=== PATIENT | male | born 1945 | race African-American/Black ===

== ENCOUNTER 2018-02-16 23:26 | Emergency (ER) | payer OTHER ==
[~2018-02-16] VITALS: Ht 182.9 cm; Wt 95.3 kg
[2018-02-17] MEDS ORDERED: IOHEXOL-350 100 ML BOTTLE ONE (00:22)
[2018-02-17] MEDS ORDERED: NALOXONE HCL 0.4 MG/ML 1ML VIAL IV STA (00:26)
[2018-02-17] MEDS ORDERED: NALOXONE HCL 1 MG/ML 2ML VIAL ONE (00:35)
[2018-02-17 00:36] LABS: BASOPHILS % 0.5 % (0.0-2.0); HEMATOCRIT. 40.9 % (42.0-52.0); HEMOGLOBIN. 13.7 g/dL (14.0-18.0); LYMPHOCYTES % 16.3 % (20.0-50.0); MEAN CORPUSCULAR HEMOGLOBIN 27.9 pg (28.0-32.0); MEAN CORPUSCULAR VOLUME 83.4 fL (80.0-94.0); MEAN PLATELET VOLUME 8.4 fl (7.4-10.4); NEUTROPHILS % 73.2 % (40.0-76.0); PLATELET 211 x1000/uL (130-400); RED CELL DISTRIBUTION WIDTH 16.8 % (11.6-14.6)
[2018-02-17 00:38] LABS: CHLORIDE 101 mEq/L (98-107)
[2018-02-17 00:41] LABS: INR 1.2; PROTHROMBIN TIME 12.7 sec (9.4-11.6)
[2018-02-17 00:42] LABS: ETHANOL BLOOD < 10 mg/dL
[2018-02-17 00:45] LABS: LDL CHOLESTEROL 33 mg/dL (5-100)
[2018-02-17 00:47] LABS: CREATINE KINASE 90 IU/L (39-308)
[2018-02-17 01:19] LABS: CLARITY URINE CLEAR (CLEAR); COLOR URINE YELLOW (YELLOW); KETONES URINE NEGATIVE (NEGATIVE); LEUKOCYTE ESTERASE URINE NEGATIVE (NEGATIVE); NITRITE URINE NEGATIVE (NEGATIVE); OCCULT BLOOD URINE TRACE (NEGATIVE); PROTEIN URINE 1+ (NEGATIVE); SPECIFIC GRAVITY URINE 1.025 (1.005-1.030)
[2018-02-17 01:33] LABS: *AMPHETAMINES SCREEN URINE NEGATIVE (NEGATIVE); *BARBITURATES SCREEN URINE NEGATIVE (NEGATIVE); *BENZODIAZEPINES SCREEN URINE NEGATIVE (NEGATIVE); *COCAINE SCREEN URINE NEGATIVE (NEGATIVE)
[2018-02-17 01:36] LABS: CANNABINOID URINE SCREEN NEGATIVE (NEGATIVE); METHADONE URINE SCREEN NEGATIVE (NEGATIVE); OPIATES URINE SCREEN NEGATIVE (NEGATIVE); PHENCYCLIDINE URINE SCREEN NEGATIVE (NEGATIVE)
[2018-02-17 01:38] VITALS: BP 179/103
== END 2018-02-17 02:05 | disposition short-term general hospital (02) ==
LOC: ER 23:26
DX: G93.40 Encephalopathy, unspecified (principal); R47.81 Slurred speech; I63.9 Cerebral infarction, unspecified; E11.9 Type 2 diabetes mellitus without complications; E78.00 Pure hypercholesterolemia, unspecified; F03.90 Unspecified dementia, unspecified severity, without behavioral disturbance, psychotic disturbance, mood disturbance, and anxiety; F20.9 Schizophrenia, unspecified; I10 Essential (primary) hypertension; R29.810 Facial weakness
CPT/HCPCS: 36415; 51702; 70450; 70496; 71045; 80053; 80305; 81003; 82550; 82962; 83605; 83721; 84484; 85025; 85610; 86850; 86900; 86901; 93005; 96374; 99291; G0482; J2310; Q9967; A4315

== ENCOUNTER 2018-03-03 13:06 | Emergency (ER) | payer OTHER, MEDICARE ==
[~2018-03-03] VITALS: Ht 172.7 cm; Wt 85.0 kg
[2018-03-03 16:17] LABS: BASOPHILS % 1.1 % (0.0-2.0); HEMATOCRIT. 37.3 % (42.0-52.0); LYMPHOCYTES % 25.5 % (20.0-50.0); MEAN CORPUSCULAR HEMOGLOBIN 28.6 pg (28.0-32.0); MEAN CORPUSCULAR VOLUME 81.9 fL (80.0-94.0); MEAN PLATELET VOLUME 7.9 fl (7.4-10.4); MONOCYTES % 6.5 % (2.0-8.0); NEUTROPHILS % 57.9 % (40.0-76.0); PLATELET 251 x1000/uL (130-400); RED BLOOD CELL COUNT 4.55 mill/uL (4.7-6.1); RED CELL DISTRIBUTION WIDTH 16.9 % (11.6-14.6)
[2018-03-03 16:21] LABS: CHLORIDE 105 mEq/L (98-107)
[2018-03-03 16:23] LABS: INR 1.2; PARTIAL THROMBOPLASTIN TIME 31.1 sec (23.4-31.0)
[2018-03-03] MEDS ORDERED: ASPIRIN 325MG EC TABLET PO ONE (20:30)
[2018-03-03 23:45] VITALS: BP 128/86
== END 2018-03-04 00:20 | disposition home or self-care (01) ==
LOC: ER 13:23
DX: R42 Dizziness and giddiness (principal); I48.92 Unspecified atrial flutter; I11.0 Hypertensive heart disease with heart failure; I50.9 Heart failure, unspecified; F03.90 Unspecified dementia, unspecified severity, without behavioral disturbance, psychotic disturbance, mood disturbance, and anxiety; E78.00 Pure hypercholesterolemia, unspecified; E11.9 Type 2 diabetes mellitus without complications; F20.9 Schizophrenia, unspecified; Z79.82 Long term (current) use of aspirin
CPT/HCPCS: 36415; 70450; 71045; 80053; 83690; 84484; 85025; 85610; 85730; 93005; 99285; J7030